=== PATIENT | female | born 1955 | race Caucasian/White ===

== ENCOUNTER → 2017-10-05 | Emergency (ER) | payer MEDICARE, OTHER ==
[~2017-10-05] VITALS: Ht 142.2 cm; Wt 79.8 kg
[~2017-10-05] MED LIST: HYDROCODONE/APAP 7.5MG-325MG 1 EA TAB PO PRN; NEXIUM20 MG PO; ONDANSETRON HCL 4 MG ORAL DISINTEGRATING TAB PO ONE
--- NOTE | 2017-10-05 12:26 | Diagnostic Imaging Report ---
EXAM: KNEE RIGHT THREE VIEWS DATE: 10/05/2017 10:29 AM INDICATION: Pain COMPARISON: None FINDINGS: Minimal osteophytosis present. Chondrocalcinosis noted. No fracture or subluxation identified. Small joint effusion. IMPRESSION: CPPD arthropathy. Signed by: Dr. Nasim David MD on 10/05/2017 12:23 PM
== END | disposition home or self-care (01) ==
LOC: ER 10:22
DX: M25.561 Pain in right knee (principal); E03.9 Hypothyroidism, unspecified; K21.9 Gastro-esophageal reflux disease without esophagitis
CPT/HCPCS: 93971; 99283

== ENCOUNTER 2019-02-21 11:18 | Emergency (ER) | payer MEDICARE, OTHER ==
[~2019-02-21] VITALS: Ht 142.2 cm; Wt 79.8 kg
[~2019-02-21 11:18] MED LIST changes: -HYDROCODONE/APAP 7.5MG-325MG 1 EA TAB PO PRN; -ONDANSETRON HCL 4 MG ORAL DISINTEGRATING TAB PO ONE
--- OUTSIDE RECORDS SUMMARY | 2019-02-21 11:21 | XMS REPORT ---
Author [facility] Address Unknown Phone Unavailable Care Team Providers Care Patch Finisher Name Role Phone Enzo LEO Unavailable Unavailable Problems This patient has no known problems. Allergies, Adverse Reactions, Alerts This patient has no known allergies or adverse reactions. Medications This patient has no known medications. Results Test Description Test Time Test Comments Text Results Atomic Results Result Comments KNEE RIGHT THREE VIEWS [place] [address] Patient Name: LUNA MALDONADO MR #: [id number] : 1955 Age/Sex: 62/F Req #: [id number] Adm Physician: Ordered by: DARI HAYES PRODUCTION LINE TECHNICIAN Report #: [id number] Location: ER Room/Bed: Procedure: [id number] DX/KNEE RIGHT THREE VIEWS Exam Date: 10/05/17 Exam Time: 1215 REPORT STATUS: Signed EXAM: KNEE RIGHT THREE VIEWS DATE: 10/05/2017 10:29 AM INDICATION: Pain COMPARISON: None FINDINGS: Minimal osteophytosis present. Chondrocalcinosis noted. No fracture or subluxation identified. Small joint effusion. IMPRESSION: CPPD arthropathy. Signed by: Dr. Nasim David MD on 10/05/2017 12:23 PM Dictated By: NASIM DAVID MD 1223 Transcribed By: MARYLOU on 10/05/17 1223 COPY TO: DARI HAYES NP
[2019-02-21] MEDS ORDERED: DIPHENHYDRAMINE HCL INJ 50 MG/ML VIAL IV NR (12:00)
[2019-02-21] MEDS ORDERED: METOCLOPRAMIDE HCL 10 MG/2ML VIAL IV NR (12:00)
[2019-02-21] MEDS ORDERED: ACETAMINOPHEN/CODEINE 300MG - 30MG TAB PO NR (12:00)
[2019-02-21 12:11] LABS: BILIRUBIN,URINE NEGATIVE (NEGATIVE); CLARITY,URINE CLEAR (CLEAR); COLOR,URINE YELLOW (YELLOW); KETONES,URINE NEGATIVE (NEGATIVE); LEUKOCYTE ESTERASE ,URINE TRACE (NEGATIVE); NITRITE,URINE NEGATIVE (NEGATIVE); PROTEIN,URINE DIPSTICK NEGATIVE (NEGATIVE); URINE UROBILINOGEN 1 mg/dL (0.2 - 1)
[2019-02-21 12:31] LABS: BACTERIA,URINE MODERATE /HPF; EPITHELIAL CELLS,URINE MANY /LPF; RBC,URINE 0-5 /HPF (0-5)
== END 2019-02-21 13:22 | disposition home or self-care (01) ==
LOC: ER 11:18
DX: G43.909 Migraine, unspecified, not intractable, without status migrainosus (principal); N39.0 Urinary tract infection, site not specified; R05 Cough; E03.9 Hypothyroidism, unspecified; K21.9 Gastro-esophageal reflux disease without esophagitis; M54.9 Dorsalgia, unspecified; G89.29 Other chronic pain
CPT/HCPCS: 81001; 87086; 99284; J1200; J2765

== ENCOUNTER 2020-08-03 05:15 | Emergency (ER) | payer MEDICARE, OTHER ==
[~2020-08-03] VITALS: Ht 142.2 cm; Wt 79.8 kg
== END 2020-08-03 06:15 | disposition home or self-care (01) ==
LOC: ER 05:47
DX: N93.8 Other specified abnormal uterine and vaginal bleeding (principal); E03.9 Hypothyroidism, unspecified; K21.9 Gastro-esophageal reflux disease without esophagitis; M54.9 Dorsalgia, unspecified; G89.29 Other chronic pain
CPT/HCPCS: 99281